=== PATIENT | female | born 1940 | race Caucasian/White ===

== ENCOUNTER 2025-04-15 08:12 | Outpatient (AMB) | payer MEDICARE, SELFPAY ==
--- OUTSIDE RECORDS SUMMARY | 2025-04-13 09:15 | XMS_ITS | Encounter Summary ---
Author Organization [facility] Address [address] [place] [address] Care Team Providers Care Racking Machine Operator Name Role Phone Ramona Rodriguez NP Primary Care Provider [phone] Encounter Details Date Type Department Care Team (Latest Contact Info) Description 04/13/2025 9:15 AM EDT Clinical Support Internal [facility] [address] [place] [address] Lizbeth Dumont MA Immunization due (Primary Dx) Social History Tobacco Use Types Packs/Day Years Used Date Smoking Tobacco: Never Smokeless Tobacco: Never Alcohol Use Standard Drinks/Week Comments Not Currently 0 (1 standard drink = 0.6 oz pur e alcohol) Housing Instability Answer Date Recorde d Are you worried that in the next 2 months you may not have stable housing? No 08/14/2024 Food Access & Nutrition Answer Date Rec orded Do you have access to a vari ety of food including fruits and vegetables? No 08/14/2024 Health Literacy Answer Date Recorded How often do you need to hav e someone help you when you read instructions, pamphlets, or other written material from your doctor or pharmacy? Never 08/14/2024 Caregiver: How often do you need to have someone help you when you read instructions, pamphlets, or other written material from your doctor or pharmacy? Not on file 08/14/2024 Financial Risk Answer Date Recorded How hard is it for you to pa y for the very basics like food, housing, medical care, and air conditioning / heating? Not very hard 08/14/2024 Transportation Answer Date Recorded Has the lack of transportati on kept you from meetings, work, or from getting things needed for daily living? No Has the lack of transportati on kept you from medical appointments or from getting medications? No 08/14/2024 Social Isolation Answer Date Recorded How often do you feel lonely or isolated from th ose around you? Never 08/14/2024 Food Risk Answer Date Recorded Within the past 12 months we worried whether our food would run out before we got money to buy more. Never true 08/14/2024 Within the past 12 months th e food we bought just didn't last and we didn't have money to get more. Never true 08/14/2024 Dependent Care Answer Date Recorded Do you need help finding or paying for care for your loved ones. For example, child specialist or elderly care for an older adult? No 08/14/2024 Education Answer Date Recorded Do you think completing more education or training, like finishing a GED, going to college, or learning a trade, would be helpful for you? No 08/14/2024 Employment and Income Answer Date Recor ded During the last four weeks, have you been actively looking for work? No 08/14/2024 Living Situation Answer Date Recorded What is your living situation? Unrecognized valu e 08/14/2024 Comments No Sex and Gender Information Value Date Recorded Sex Assigned at Not on file Legal Sex Female 5:47 PM EST Gender Identity Not on file Sexual Orientation Not on file documented as of this encounter Plan of Treatment Upcoming Encounters Date Type Department Care Team (Late st Contact Info) Description 06/17/2025 10:00 AM EST Office Visit Internal Medicine - [facility] [address] [place] [address] Ramona Rodriguez NP [address] [place] [address] 09/30/2025 8:00 AM EDT Office Visit Endocrinology - [place] [address] [place] [address] Muriel Grijalva PA [address] [place], [place] documented as of this encounter Visit Diagnoses Diagnosis Immunization due- Primary documented in this encounter Orders Immunization/Injection Count Last Ordered Date First Ordered Date INFLUENZA TRIVALENT, 0.5ML ( FLUAD) 65YO AND OLDER 1 04/13/2025 documented in this encounter Additional Health Concerns Infection Onset Date Last Indicated Resolved Time COVID-19 03/17/2025 03/17/2025 Assessment Noted Time PHQ-9 Depression Total Score: 0 08/14/19 25 8:39 AM EST documented as of this encounter Care Teams Racking Machine Operator Relationship Specialty Start Date End Date Ramona Rodriguez NP [address] [place] [address] PCP - General 07/05/22 documented as of this encounter
[2025-04-15 08:19] VITALS: BP 142/90; PULSE 81; TEMP 37.1; O2SAT 96
--- NOTE | 2025-04-15 08:19 | AM.OFFWIN_ITS ---
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 - Symptoms began approximately four days ago, characterized by pain and burning during urination, as well as urinary frequency and urgency. - The urine has occasionally appeared cl oudy, but there is no presence of blood, discharge, or vaginal itching. - There are no associated symptoms of ba ck pain, fever, or chills. - The patient has a known allergy to oxy codone but no known allergies to antibiotics. - The patient denies hematuria, abd pain , n/v/d, or stones. Physical Exam General: Cooperative, healthy appearing, comfortable, no acute distress and well developed Cardiac: Normal S1 and S2. RRR, no M/R/G noted. Respiratory: Normal respiratory effort and able to speak in complete sentences. Clear to auscultation bilaterally. No w/r/r noted. Skin: No rashes or lesions noted. GI: Normal inspection. Normal BS noted. Soft, non-tender, non-distended. No TTP of all 4 quadrants. No guarding or rebound tenderness noted. Back: Negative CVA bilaterally Patient was informed and verbally consented to the use of an ambient scribe for clinic note documentation during this visit. Review of Systems Const All systems reviewed & are unremarkable except as noted in HPI and below Physical Exam Vital Signs: Last Vital Signs Temp 98.8 F 04/15/25 08:19 Pulse 81 04/15/25 08:19 BP 142/90 H 04/15/25 08:19 Pulse Ox 96 04/15/25 08:19 Oxygen Delivery Method Room Air 04/15/25 08:19 Results AMB Urinalysis, Automated UA Leukoctes 500 Tatiana/uL Last Edit by Nya Vasquez CMA on 04/15/25 08:28 UA Nitrite Negative Last Edit by Nya Vasquez CMA on 04/15/25 08:28 UA Urobilinogen 0.2 mg/dL Last Edit by Nya Vasquez, JOSÉ MIGUEL on 04/15/25 08:28 UA Protein 0 mg/dL Last Edit by Nya Vasquez, JOSÉ MIGUEL on 04/15/25 08:28 UA pH 6.5 Last Edit by Nya Vasquez, WEIGHTER on 04/15/25 08:28 UA Blood 200 Jagdeep/uL Last Edit by Nya Vasquez, WEIGHTER on 04/15/25 08:28 UA Specific [place] 1.005 Last Edit by Nya Vasquez, WEIGHTER on 04/15/25 08:28 UA Ketone Negative Last Edit by Nya Vasquez, JOSÉ MIGUEL on 04/15/25 08:28 UA Bilirubin 0 mg/dL Last Edit by Nya Vasquez, WEIGHTER on 04/15/25 08:28 UA Glucose 0 mg/dL Last Edit by Nya Vasquez, JOSÉ MIGUEL on 04/15/25 08:28 Results Reviewed Results Reviewed: Laboratory Last Values Urine pH (Auto) 6.5 04/15/25 08:21 Specific [place] (Auto) 1.005 04/15/25 08:21 Urine Protein (Auto) 0 mg/dL 04/15/25 08:21 Glucose (UA)(Auto) 0 mg/dL 04/15/25 08:21 Urine Ketones (Auto) Negative 04/15/25 08:21 Urine Blood (Auto) 200 Jagdeep/uL 04/15/25 08:21 Urine Nitrite (Auto) Negative 04/15/25 08:21 Urine Bilirubin (Auto) 0 mg/dL 04/15/25 08:21 Urine Urobilinogen (Auto) 0.2 mg/dL 04/15/25 08:21 Leukocyte Esterase (Auto) 500 Tatiana/uL 04/15/25 08:21 Assessment & Plan Assessment & Plan (1) UTI (urinary tract infection): Code(s): N39.0 - Urinary tract infection, site not specified Qualifiers: Urinary tract infection type: acute cystitis Hematuria presence: with hematuria Qualified Code(s): N30.01 - Acute cystitis with hematuria Plan Most likely UTI UA 3+ leuk 3+blood Plan - Initiate antibiotic therapy for urinary tract infection for a duration of five days. - Consider prescribing analgesics to manage urinary pain, with a warning about potential urine discoloration. - Send urine culture to the lab to confirm the infection and adjust antibiotics if necessary based on culture results. - follow up with PCP Orders: Orders AMB Urinalysis Automated Today Z13.9 - Encounter for screening, unspecified Urine Culture Today N39.0 - Urinary tract infection, site not specified Medications: New phenazopyridine 100 mg PO tid PRN 6 tabs 0RF Pain cefuroxime axetil 500 mg PO Q12H 10 tabs 0RF Coding Level of Care Code Est Pt Level 3 (64221) Diagnoses Acute cystitis with hematuria N30.01 Urinary tract infection type: acute cystitis Hematuria presence: with hematuria
--- OUTSIDE RECORDS SUMMARY | 2025-04-15 08:30 | XMS_ITS | Encounter Summary ---
Author Organization [facility] Address [address] [place] [address] Care Team Providers Care Director Of Adult Epilepsy Name Role Phone Ramona Rodriguez NP Primary Care Provider [phone] Reason for Visit * Reason Comments Med Change Request Encounter Details Date Type Department Care Team ([facility] st Contact Info) Description 03/14/2025 Telephone Internal Medicine - [facility] [address] [place], [place] [phone] Saritha Kaur NP [address] [place], [place] Social History Tobacco Use Types Packs/Day Years [...] for your loved ones. 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 [...] on file documented as of this encounter Progress Notes * Tawnya Kim MA - 03/17/2025 1:06 PM EDT Not on current med list or in history. * Carina Quinn MA - 03/17/2025 12:31 PM EDT Images from the original note were not included. documented in this encounter Plan of Treatment Upcoming Encounters Date Type Department Care Team (Late st Contact Info) Description 06/17/2025 10:00 AM EST [facility] [address] [place] [address] Ramona Rodriguez NP [address] [place] [address] 09/30/2025 8:00 AM EDT Office Visit Endocrinology - [facility] [address] [place] [address] Muriel Grijalva PA [address] [place] [address] documented as of this encounter Visit Diagnoses Not on filedocumented in this encounter Additional Health Concerns Infection Onset Date Last Indicated Resolved Time COVID-19 03/17/2025 03/17/2025 Assessment Noted Time PHQ-9 Depression Total Score: 0 08/14/19 25 8:39 AM EST documented as of this encounter Care Teams Director Of Adult Epilepsy Relationship Specialty Start Date End Date Ramona Rodriguez NP [address] [place] [address] PCP - General 07/05/22 documented as of this encounter
--- OUTSIDE RECORDS SUMMARY | 2025-04-15 08:30 | XMS_ITS | Continuity of Care Document ---
Author Organization [facility] [address] [facility] [address] [place] [address] Phone [phone] Care Team Providers Care Amusement Park Entertainer Name Role Phone Muriel Grijalva Care Team Information Bunch Maker [phone] Social History Type Date Description Comments Sex Female Sex Unknown Medical Devices Description No Information Available Encounters Description No Information Available Assessments Description No Information Available Plan of Treatment Future Appointment(s):* 04/17/2025 9:15 am - Maureen Dale NP at Main Office Functional Status Description No Information Available Mental Status Description No Information Available Referrals Description No Information Available
--- OUTSIDE RECORDS SUMMARY | 2025-04-15 08:30 | XMS_ITS | Clinical Summary ---
Author Organization [address] [place] [address] [place] [phone] Phone Care Team Providers Care Crime Analyst Name Role Phone Ramona Rodriguez NP Primary Care Provider [phone] Allergies Active Allergy Reactions Criticality Noted Date Comments Diclofenac Sodium 11/19/2024 Extremity edema after application which resolves with its discontinuation. Oxycodone 09/04/2022 Pollen Extracts 06/27/2024 Medications hydrocortison e 2.5 % cream Apply to affected area twice daiy as needed. Not to exceed 14 days of consecutive use. External use only. 10/31/19 23 Active omeprazole (PriLOSEC) [address] capsule Take 1 capsule (20 mg total) by mouth 1 (one) time each day. 09/16/19 23 Active EPINEPHrine (EPIPEN) 0.3 mg/0.3 mL injection Inject 0.3 mL (0.3 mg total) under the skin if needed. Active tiZANidine (ZANAFLEX) 2 mg tablet Take 1 tablet (2 mg total) by mouth every 6 (six) hours if needed for muscle spasms for up to 7 days. 28 each 12/11/19 25 Active NIFEdipine (ADALAT CC) 30 mg 24 hr tablet Take 1 tablet (30 mg total) by mouth 1 (one) time each day. Do not crush, chew, or split. 30 tablet 5 12/25/19 25 025 Active alendronate (FOSAMAX) 70 mg tablet TAKE 1 TAB BY MOUTH EVERY 7 DAYS ON AN EMPTY STOMACH, REMAIN UPRIGHT FOR AT LEAST 30 MINUTES 12 tablet 1 01/06/20 25 Active furosemide (LASIX) 20 mg tablet Take 1 tablet (20 mg total) by mouth 1 (one) time each day if needed (swelling). 30 each 2 01/20/20 25 Active meloxicam (MOBIC) 15 mg tablet Take 1 tablet (15 mg total) by mouth 1 (one) time each day. 03/03/20 25 Active losartan (Cozaar) 100 mg tablet Take 0.5 tablets (50 mg total) by mouth 1 (one) time each day. 45 each 1 02/03/20 25 025 Discontinued celecoxib (CeleBREX) 200 mg capsule Take 1 capsule (200 mg total) by mouth 1 (one) time each day. 025 Discontinued(S bailee effects) molnupiravir 200 mg capsule Take 4 capsules (800 mg total) by mouth every 12 (twelve) hours for 5 days. 40 capsule 03/14/20 25 025 Discontinued nirmatrelvir- ritonavir (Paxlovid) 300 mg (150 mg x 2)-100 mg tablet therapy pack Take 3 tablets by mouth every 12 (twelve) hours for 5 days. Take number of ordered nirmatrelvir (300 mg = 2 tablets) and ritonavir (100 mg = 1 tablet) tablets at the same time. 30 tablet 03/14/20 25 025 Discontinued Active Problems Problem Noted Date Diagnosed Date Gastroesophageal reflux disease without esophagi tis 10/25/2022 Mixed hyperlipidemia 10/25/2022 Age-related osteoporosis wit hout current pathological fracture 10/25/2022 Primary hypertension 09/04/2022 Encounters Date Type Department Care Team Description 04/13/2025 9:15 AM EDT Clinical Support Internal Medicine - [address] [place] [phone] Lizbeth Dumont MA Immunization due (Primary Dx) 03/17/2025 10:00 AM EDT Office Visit Internal Medicine - [address] [place] [phone] Ramona Rodriguez NP Primary hypertension (Primary Dx); Age-related osteoporosis without current pathological fracture; COVID 03/14/2025 10:00 AM EDT Office Visit Walk-In Clinic - [address] [phone] Saritha Kaur NP COVID (Primary Dx); Upper respiratory tract infection, unspecified type 03/14/2025 Telephone Internal Medicine - [address] [phone] Saritha Kaur NP 03/14/2025 Telephone Walk-In Clinic - [address] [phone] Jong Chong 03/14/2025 Telephone Internal Medicine - [address] [phone] Ramona Rodriguez NP 02/27/2025 Telephone Internal Medicine - [address] [phone] Ramona Rodriguez NP 02/20/2025 Telephone Internal Medicine - [address] [phone] Ramona Rodriguez NP 02/20/2025 Telephone Internal Medicine - [address] [phone] Ramona Rodriguez NP 02/10/2025 Telephone Internal Medicine - [address] [phone] Ramona Rodriguez NP 02/02/2025 10:45 AM EDT [facility] [address] [phone] Ramona Rodriguez NP Primary hypertension (Primary Dx); Other fatigue; Polymyalgia ([facility]/HCC V24); Vitamin D deficiency; Polyarthralgia; Screen for colon cancer; Acute pain of right knee 01/30/2025 9:45 AM EDT Office Visit Endocrinology [address] [phone] Antonio Loyd MD Hyperparathyroidism ([facility] V24) (Primary Dx); Age related osteoporosis, unspecified pathological fracture presence 01/26/2025 [facility] [address] [facility] [place] [address] Ramona Rodriguez NP from Last 3 Months Immunizations Immunization Administration Dates Next Due Influenza trivalent, 0.5mL ( Fluad) 65yo and older 04/13/2025 Influenza trivalent, 0.5mL ( Fluzone High-dose) 65yo and older 03/27/2023,04/10/2022,03/16/2021,2017,04/17/2017,05/10/2016 Influenza trivalent, 0.5mL, preservative free (Fluarix; FluLaval; Fluzone) ages 6mo and older (Afluria) 3 years and older 03/24/2020 Influenza trivalent, with preservative (Fluzone; Afluria) 6mo and older 04/15/2015 Pfizer Covid-19 Bivalent, Or iginal + Ba.1 (Non-US Trademark [employer] Intelligence Bivalent) 05/14/2022 Pneumococcal conjugate 13 va lent (Prevnar 13, PCV13) 2mo and older 05/10/2016 Pneumococcal conjugate 20 va lent (Prevnar 20, PCV 20) 2mo and older 09/04/2022 Surgical History Surgery Date Site/Laterality Comments CHOLECYSTECTOMY PROCEDURE: HISTORICAL CHOLECYSTECTOMY CATARACT EXTRACTION Bilateral PROCEDURE: HISTORICAL CATARACT REMOVAL COLONOSCOPY 07/16/2019 - 08/15/2019 int rhoids (10 yr) COLONOSCOPY 05/16/2012 - 06/14/2012 10 yrs Medical History Medical History Date Comments Essential (primary) hypertension DX:Essential (primary) hypertension Allergic rhinitis DX:Allergic rh initis Lumbago DX:Lumbago Family History Medical History Relation Name Comments Hypertension Brother Other cancer Brother No Known Problems Daughter Hypertension Father Hypertension Mother No Known Problems Son Relation Name Status Comments Brother Daughter Alive Father Mother Son Alive Social History Tobacco Use Types Packs/Day Years Used Date Smoking Tobacco: Never Smokeless Tobacco: Never Tobacco Cessation:Counseling Given: Not Answered Alcohol Use Standard Drinks/Week Comments Not Currently [...] for your loved ones. For example, child support investigator or elderly care for an older adult? [...] on file Sexual Orientation Not on file Obstetrics History Para Term AB IAB SAB Ectopic Multiple Livin g Live Births 2 Last Filed Vital Signs Vital Sign Reading Time Taken Comments Blood Pressure 112/58 03/17/2025 9:43 AM EDT Pulse 85 03/17/2025 9:33 AM EDT Temperature 36.7 C (98 F) 03/14/2025 9:54 AM EDT Respiratory Rate - - Oxygen Saturation 98% 03/14/2025 9:54 AM EDT Inhaled Oxygen Concentration - - Weight 60.3 kg (133 lb) 03/17/2025 9:33 AM EDT Height 154.9 cm (5' 1 ) 03/17/2025 9:33 AM EDT Body Mass Index 25.13 03/17/2025 9:33 AM EDT Plan of Treatment Upcoming Encounters Date Type Department Care Team (Late st Contact Info) Description 06/17/2025 10:00 AM EST Office Visit Internal Medicine - [facility] [address] [place], [place] [phone] Ramona Rodriguez, [place] [address] [place] [address] 09/30/2025 8:00 AM EDT Office Visit Endocrinology - [place] [address] [place] [phone] Muriel Grijalva PA [address] [place] [address] Health Maintenance Due Date Last Done Comments DTaP,Tdap,and Td Vaccines (1 - Tdap) 1961 Zoster Vaccines (1 of 2) 1992 Falls Risk Assessment 07/24/2024 07/24/2023 COVID-19 Vaccine ( season) 2025 04/30/2021, 09/13/2020, 08/23/2020 Medicare Annual Wellness Visit 08/14/2025 08/14/2024 Social Influencers of Health Screening 08/14/2025 08/14/2024 Hypertension/CHF/CAD Annual BMP Blood Test 02/20/2026 02/20/2025, 12/09/2024, 09/25/2024, Additional history exists Cholesterol Screening (Lipid Panel) 07/24/2028 07/24/2023 Osteoporosis Screening (Bone Density Screening) 08/20/2034 08/20/2024 Pneumococcal Vaccine: 50+ Years Completed 09/04/2022, 05/10/2016 RSV Immunization Adult Patients Completed 07/31/2024 Depression Screening Completed 08/14/2024, 07/24/19 24 Influenza Vaccine Completed 04/13/2025, , 03/19/2024, Additional history exists HIB Vaccines Aged Out No longer eligi ble based on patient's age to complete this topic HPV Vaccines Aged Out No longer eligi ble based on patient's age to complete this topic Hepatitis A Vaccines Aged Out No long er eligible based on patient's age to complete this topic Hepatitis B Vaccines Aged Out No long er eligible based on patient's age to complete this topic IPV Vaccines Aged Out No longer eligi ble based on patient's age to complete this topic MMR Vaccines Aged Out No longer eligi ble based on patient's age to complete this topic Meningococcal ACWY Vaccine Aged Out N o longer eligible based on patient's age to complete this topic Meningococcal B Vaccine Aged Out No l onger eligible based on patient's age to complete this topic RSV Immunization Patients Under 20 months Aged Out No longer eligible based on patient's age to complete this topic Varicella Vaccines Aged Out No longer eligible based on patient's age to complete this topic Procedures Procedure Name Priority Date/Time Associated Diagnosis Comments POC INFLUENZA A/B Routine 03/17/2025 2:0 2 PM EDT Upper respiratory tract infection, unspecified type POC RAPID [id number], MOLECULAR Routine 03/17/2025 2:02 PM EDT Upper respiratory tract infection, unspecified type BASIC METABOLIC PANEL Routine 02/20/2025 1:37 PM EDT Cramps of lower extremity LAB COLOGUARD COLON CANCER SCREEN Routine 02/07/2025 10:00 AM EDT Screen for colon cancer CBC WITH AUTO DIFFERENTIAL Routine 02/02/2025 11:23 AM EDT Other fatigue CBC AND DIFFERENTIAL Routine 02/02/2025 11:23 AM EDT Other fatigue VITAMIN D 25 HYDROXY Routine 02/02/2025 11:23 AM EDT Other fatigue Vitamin D deficiency VITAMIN B12 Routine 02/02/2025 11:23 AM EDT Other fatigue THYROID STIMULATING HORMONE WITH REFLEX TO FREE T4 AND FREE T3 Routine 02/02/2025 11:23 AM EDT Other fatigue BORRELIA BURGDORFERI ANTIBODY Routine 02/02/2025 11:23 AM EDT Other fatigue BD BONE DENSITY DXA AXIAL SKELETON Routine 08/20/2024 9:26 AM EST Menopause HM DEPRESSION SCREENING Routine 07/24/2023 FALLS RISK ASSESSMENT Routine 07/24/2023 LIPID PANEL Routine 07/24/2023 from Last 3 Months or Most Recently Relevant to Health Maintenance Results * (ABNORMAL) Poc Rapid [id number], MOLECULAR (03/17/2025 2:02 PM EDT) Pathologist [facility] COVID-19/SARS- COV-2 Rapid POC Positive(A ) Negative Comment:corrected by danyell Swab Nasopharyngeal structure / Unknown 03/17/2025 2:02 PM EDT us Saritha Kaur NP POINT OF CARE TEST ENTER/EDIT ORDERABLES Edited Result - Final * POC Influenza A/B manually resulted (03/17/2025 2:02 PM EDT) Pathologist [facility] Rapid Influenza A AGN POC Negative Negative Rapid Influenza B AGN POC Negative Negative Swab 03/17/2025 2:02 PM EDT Saritha Kaur NP POINT OF CARE TEST ENTER/EDIT ORDERABLES Final Result * (ABNORMAL) Basic metabolic panel (02/20/2025 1:37 PM EDT) Sodium 138 133 - 145 mmol/L LAB CHEMISTRY METHOD 02/20/2025 3:26 PM [facility] Potassium 4.3 3.5 - 5.5 mmol/L LAB CHEMISTRY METHOD 02/20/2025 3:26 PM [facility] Chloride 103 96 - 110 mmol/L LAB CHEMISTRY METHOD 02/20/2025 3:26 PM [facility] CO2 31 21 - 32 mmol/L LAB CHEMISTRY METHOD 02/20/2025 3:26 PM [facility] Anion Gap 4 3 - 11 LAB CHEMISTRY METHOD 02/20/2025 3:26 PM [facility] Glucose 145(H) 70 - 100 mg/dL LAB CHEMISTRY METHOD 02/20/2025 3:26 PM [facility] BUN 24 5 - 25 mg/dL LAB CHEMISTRY METHOD 02/20/2025 3:26 PM [facility] Creatinine 1.03 0.50 - 1.10 mg/dL LAB CHEMISTRY METHOD 02/20/2025 3:26 PM [facility] eGFR 54(L) >=60 mL/min/1. 73m2 LAB CHEMISTRY METHOD 02/20/2025 3:26 PM [facility] Comment:Calculation based on the Chronic Kidney Disease Epidemiology Collaboration (CKD-EPI) equation refit without adjustment for race. BUN/Creatinine Ratio 23.3 LAB CHEMISTRY METHOD 02/20/2025 3:26 PM [facility] Calcium 9.8 8.5 - 10.5 mg/dL LAB CHEMISTRY METHOD 02/20/2025 3:26 PM [facility] Blood Venous blood specimen / Unknown Venipuncture / Unknown 02/20/2025 1:37 PM EDT 02/20/2025 1:37 PM EDT Ramona Rodriguez NP LAB BLOOD ORDERABLES Final Resu lt [facility] [address] [place] [address], * Cologuard?? colon cancer screening (02/07/2025 10:00 AM EDT) COLOGUARD Negative Negative [facility] Comment: The Cologuard Plus (TM) test was performed on this specimen. NEGATIVE TEST RESULT. A negative (normal) Cologuard Plus result means the patient has a [id number] chance of having colorectal cancer (CRC) or advanced precancer (polyps or lesions that could become cancer). Negative is the normal value (reference range) for this assay. Guidelines recommend screening again 3 years after a negative Cologuard Plus result. Continued screening increases the chance of finding CRC early or preventing it entirely. A clinical validation study showed the Cologuard Plus test is effective at ruling out CRC. Out of every 10,000 patients testing negative, approximately 2 will be falsely reassured that they do not have CRC, and out of every 100 patients testing negative, approximately 7 patients will be falsely reassured they do not have advanced precancer. TEST DESCRIPTION: The Cologuard Plus test is a multi-target stool DNA (mt-sDNA) test that analyzes DNA and hemoglobin biomarkers in stool. It uses a proprietary algorithm to qualitatively detect CRC and advanced precancer. It is FDA-approved and indicated for use in adults 45 years or older at average risk for CRC. A positive (abnormal) result should be followed by a colonoscopy. Patients with a negative (normal) result should screen again in 3 years. False positive and false negative results may occur. The USPSTF recommends the Cologuard test as a CRC screening option. Their modeling estimates that screening with the test every 3 years from ages 45-85 could prevent up to 73% of CRC and avoid up to 85% of CRC deaths. A 18,911-patient clinical trial found the Cologuard Plus test effectively detects CRC and precancer. The study found the test was 95% sensitive for CRC, 43% sensitive for advanced precancer, and had a 91% specificity (Cologuard Plus Clinician Brochure. [employer]. [place], [place].). Visit [email or web address]/[email or web address] for more test information, references, warnings, and precautions. Stool 02/07/2025 10:0 0 AM EDT 02/10/2025 12:45 PM EDT [facility] LAB MOLECULAR DIAGNOSTICS ORDER JU Final Result Performing Organization Address [facility] [address]/[facility] Co de Phone Number [employer] [address] [place] [address] [facility] [address] [place] [address] * Thyroid stimulating hormone with reflex to free t4 and free t3 (02/02/2025 11:23 AM EDT) Pathologist [facility] TSH 1.96 0.40 - 4.00 mcIU/mL LAB CHEMISTRY METHOD 02/02/2025 2:58 PM EDT [facility] Blood Venous blood specimen / Unknown Venipuncture / Unknown 02/02/2025 11:23 AM EDT 02/02/2025 11:24 AM EDT [facility] LAB BLOOD ORDERABLES Final Resu lt Performing Organization Address City/[facility] [address]/ZIP Co de Phone Number [facility] [address] [place] [address], * (ABNORMAL) CBC auto differential (02/02/2025 11:23 AM EDT) WBC 6.7 4.8 - 10.8 K/[facility] LAB HEMETOLOGY METHOD 02/02/2025 2:22 PM EDT [facility] RBC 4.90(H) 3.80 - 4.80 M/[facility] LAB HEMETOLOGY METHOD 02/02/2025 2:22 PM [facility] Hemoglobin 14.3 11.5 - 16.0 g/dL LAB HEMETOLOGY METHOD 02/02/2025 2:22 PM [facility] Hematocrit 44.3 35.0 - 47.0 % LAB HEMETOLOGY METHOD 02/02/2025 2:22 PM [facility] MCV 90.6 79.0 - 98.0 FL LAB HEMETOLOGY METHOD 02/02/2025 2:22 PM [facility] MCH 29.2 27.0 - 32.0 pcg LAB HEMETOLOGY METHOD 02/02/2025 2:22 PM [facility] MCHC 32.3 32.0 - 37.0 g/dL LAB HEMETOLOGY METHOD 02/02/2025 2:22 PM [facility] RDW 13.8 11.0 - 15.0 % LAB HEMETOLOGY METHOD 02/02/2025 2:22 PM [facility] Platelets 207 130 - 400 K/mcL LAB HEMETOLOGY METHOD 02/02/2025 2:22 PM [facility] MPV 11.6(H) 7.0 - 11.0 FL LAB HEMETOLOGY METHOD 02/02/2025 2:22 PM [facility] NRBC 0.0 <1.0 % LAB HEMETOLOGY METHOD 02/02/2025 2:22 PM [facility] NRBC Absolute 0.00 <0.10 K/mcL LAB HEMETOLOGY METHOD 02/02/2025 2:22 PM [facility] Neutrophils Relative 58.1 % LAB HEMETOLOGY METHOD 02/02/2025 2:22 PM [facility] Lymphocytes Relative 29.1 % LAB HEMETOLOGY METHOD 02/02/2025 2:22 PM [facility] Monocytes Relative 9.3 % LAB HEMETOLOGY METHOD 02/02/2025 2:22 PM EDT [facility] Eosinophils Relative 3.0 % LAB HEMETOLOGY METHOD 02/02/2025 2:22 PM EDT [facility] Basophils Relative 0.4 % LAB HEMETOLOGY METHOD 02/02/2025 2:22 PM EDT [facility] Immature Granulocytes Relative 0.1 % LAB HEMETOLOGY METHOD 02/02/2025 2:22 PM EDT [facility] Neutrophils Absolute 3.87 1.50 - 7.00 K/mcL LAB HEMETOLOGY METHOD 02/02/2025 2:22 PM EDT [facility] Lymphocytes Absolute 1.94 1.00 - 5.00 K/mcL LAB HEMETOLOGY METHOD 02/02/2025 2:22 PM EDT [facility] Monocytes Absolute 0.62 0.20 - 1.00 K/mcL LAB HEMETOLOGY METHOD 02/02/2025 2:22 PM EDT [facility] Eosinophils Absolute 0.20 0.00 - 0.50 K/mcL LAB HEMETOLOGY METHOD 02/02/2025 2:22 PM EDT [facility] Basophils Absolute 0.03 0.00 - 0.20 K/mcL LAB HEMETOLOGY METHOD 02/02/2025 2:22 PM EDT [facility] Immature Granulocytes Absolute 0.01 0.00 - 0.03 K/mcL LAB HEMETOLOGY METHOD 02/02/2025 2:22 PM EDT [facility] Blood Venous blood specimen / Unknown Venipuncture / Unknown 02/02/2025 11:23 AM EDT 02/02/2025 11:24 AM EDT us Ramona Rodriguez NP LAB BLOOD ORDERABLES Final Resu lt [facility] [address] [place] [address], * Borrelia burgdorferi antibody (02/02/2025 11:23 AM EDT) [facility] Lyme Ab Negative Negative LAB CHEMISTRY METHOD 02/03/2025 9:58 AM EDT [facility] Comment: No laboratory evidence of infection with B. burgdorferi (Lyme disease). Negative results may occur in patients recently infected (<=14 days) with B. burgdorferi. If recent infection is suspected, repeat testing on a new sample collected in 7- 14 days is recommended. Blood Venous blood specimen / Unknown Venipuncture / Unknown 02/02/2025 11:23 AM EDT 02/02/2025 11:24 AM EDT Ramona Rodriguez NP LAB BLOOD ORDERABLES Final Resu lt [facility] [address] [place] [address], * Vitamin D 25 hydroxy (02/02/2025 11:23 AM EDT) [facility] Vit D, 25-Hydroxy 35.5 30.0 - 80.0 ng/mL LAB CHEMISTRY METHOD 02/02/2025 2:58 PM EDT [facility] Blood Venous blood specimen / Unknown Venipuncture / Unknown 02/02/2025 11:23 AM EDT 02/02/2025 11:24 AM EDT Ramona Rodriugez [employer] LAB BLOOD ORDERABLES Final Resu lt [facility] [address] [place] [address], * Vitamin B12 (02/02/2025 11:23 AM EDT) [facility] Vitamin B-12 892 250 - 900 pcg/mL LAB CHEMISTRY METHOD 02/02/2025 6:09 PM EDT [facility] Blood Venous blood specimen / Unknown Venipuncture / Unknown 02/02/2025 11:23 AM EDT 02/02/2025 11:24 AM EDT us Ramona Rodriguez NP LAB BLOOD ORDERABLES Final Resu lt [facility] [address] [place] [address], * BD Bone Density DXA Axial Skeleton (08/20/2024 9:26 AM EST) Anatomical Region Laterality Modality Wrist, Hip, L-spine Bone Densito metry 08/20/2024 11:5 0 AM EST Impressions 08/20/2024 11:52 AM EST Impression: This patient is considered to have osteoporosis by WHO criteria. [facility] Department of Internal Medicine recommends using National Osteoporosis Foundation (NOF) guidelines in treatment decisions related to osteoporosis. NOF guidelines suggest considering treatment for postmenopausal women and men aged 50 or older presenting with the following: History of hip or vertebral fracture. T-score = -2.5 (DXA) at the femoral neck, total hip, or spine, after appropriate evaluation to exclude secondary causes. Low bone mass (T-score between -1.0 and -2.5 at the femoral neck or spine) AND a 10-year probability of a hip fracture = 3% OR a 10-year probability of a major osteoporosis-related fracture = 20% based on the [place]-adapted WHO algorithm Please note that all treatment decisions require clinical judgment and consideration of individual patient factors, including patient preferences, co-morbidities, previous drug use, risk factors not captured in the FRAX model (e.g., frailty, falls, vitamin D deficiency, increased bone turnover, interval significant decline in bone density) and possible under- or over-estimation of fracture risk by FRAX. Optional alternative screening schedule based on horace Hinds., [facility] August 03, 2011 for patients with osteopenia (based on hip BMD T-score) is as follows: * advanced osteopenia (T scores -2.00 to -2.49), BMD testing every year * moderate osteopenia (T scores -1.50 to -1.99), BMD testing every 5 years mild osteopenia or normal BMD (T scores -1.50 and higher), BMD testing every 15 years -------- FINAL REPORT -------- Dictated By: Damari Vásquez Dictated Date: 08/20/2024 11:50 ET Assigned Physician: Damari Vásquez Reviewed and Electronically Signed By: Damari Vásquez Signed Date: 08/20/2024 11:52 ET Workstation ID: [id number] Transcribed By: Self Edit Transcribed Date: 08/20/2024 11:50 ET Narrative 08/20/2024 11:52 AM EST BONE DENSITY (DEXA) Lumbar Spine T-score is -2.2. (SD relative to 20-29 y/o adult) Z-score is 0.6. (SD relative to age matched peers) This is considered osteopenia by WHO criteria. Left Hip T-score is -2.5. Z-score is -0.1. This is considered osteoporosis by WHO criteria. There is curvature of the lumbar spine, convexity to the left. Procedure Note Damari Vásquez MD - 08/20/2024 BONE DENSITY (DEXA) Lumbar Spine T-score is -2.2. (SD relative to 20-29 y/o adult) Z-score is 0.6. (SD relative to age matched peers) This is considered osteopenia by WHO criteria. Left Hip T-score is -2.5. Z-score is -0.1. This is considered osteoporosis by WHO criteria. There is curvature of the lumbar spine, convexity to the left. IMPRESSION: Impression: This patient is considered to have osteoporosis by WHO criteria. [facility] Department of Internal Medicine recommendsusing National Osteoporosis Foundation (NOF) guidelines in treatmentdecisions related to osteoporosis. NOF guidelines suggest consideringtreatment for postmenopausal women and men aged 50 or older presentingwith the following: History of hip or vertebral fracture. T-score = -2.5 (DXA) at the femoral neck, total hip, or spine, afterappropriate evaluation to exclude secondary causes. Low bone mass (T-score between -1.0 and -2.5 at the femoral neck or spine)AND a 10-year probability of a hip fracture = 3% OR a 10-year probabilityof a major osteoporosis-related fracture = 20% based on the [place]-adapted WHOalgorithm Please note that all treatment decisions require clinical judgment andconsideration of individual patient factors, including patientpreferences, co-morbidities, previous drug use, risk factors not capturedin the FRAX model (e.g., frailty, falls, vitamin D deficiency, increasedbone turnover, interval significant decline in bone density) and possibleunder- or over-estimation of fracture risk by FRAX. Optional alternative screening schedule based on shannan Hinds al., [facility] for patients with osteopenia (based on hip BMD T-score)is as follows: * advanced osteopenia (T scores -2.00 to -2.49), BMD testing every year * moderate osteopenia (T scores -1.50 to -1.99), BMD testing every 5years mild osteopenia or normal BMD (T scores -1.50 and higher), BMD testingevery 15 years -------- FINAL REPORT -------- Dictated By: Damari Vásquez Dictated Date: 08/20/2024 11:50 ET Assigned Physician: Damari Vásquez Reviewed and Electronically Signed By: Damari Vásquez Signed Date: 08/20/2024 11:52 ET Workstation ID: [id number] Transcribed By: Self Edit Transcribed Date: 08/20/2024 11:50 ET Ramona Rodriguez NP IMG DXA PROCEDURES Final Result * Falls Risk Assessment (07/24/2023) [facility] Falls Risk Assessment Abstracted Historical Provider HEALTH MAINTENANCE Final Result * Depression Screening (07/24/2023) [facility] Depression Screening Abstracted Historical Provider HEALTH MAINTENANCE Final Result * Lipid panel (07/24/2023) [facility] LDL/HDL Ratio 3 Triglycerides 166 mg/dL Cholesterol 234 mg/dL HDL 69 mg/dL LDL Cholesterol 132 mg/dL Blood Venous blood specimen / Unknown us Historical Provider LAB BLOOD ORDERABLES Carrie l Result from Last 3 Months or Most Recently Relevant to Health Maintenance Additional Health Concerns Infection Onset Date Last Indicated COVID-19 03/17/2025 03/17/2025 Insurance [employer] Care Teams Crime Analyst Relationship Specialty Start Date End Date Ramona Rodriguez NP [address] [place] [address] PCP - General 07/05/22
== END 2025-04-15 08:52 | disposition home or self-care (01) ==
PROVIDERS: PCP Internal Medicine; Visit Provider Physician Assistant Medical
DX: Z13.9 Encounter for screening, unspecified (principal); N30.01 Acute cystitis with hematuria

== ENCOUNTER 2025-04-15 08:12 | Outpatient (REF) | payer MEDICARE, MEDICAID, SELFPAY ==
--- OUTSIDE RECORDS SUMMARY | 2025-04-15 09:12 | XMS_ITS | Patient Health Record ---
Author Organization [facility] Address [address] [place] [address] Care Team Providers Care Web Services Manager Name Role Phone Ramona Rodriguez Primary Care Provider Kiesrten Evans Unavailable [phone] Allergies Allergen (clinical drug ingredient) Drug/Non Drug Allergy documented on EMR Reaction Allergy Type Onset Date Status meperidine Demerol pt unsure if allergic to Drug Allergy Active codeine Codeine vomiting Drug Allergy Active oxycodone Oxycodone vomiting Drug Allergy Active Reason For Referral No Information Medications Medication SIG (Take, Route, Frequency, Duration) Notes Start Date End Date Status Losartan Potassium 100 MG 1 tablet Orall y Once a day Active Atenolol 50 MG Oral; Duration: 90 Not-Taking Calcium Not-Taking Eye Health Not-Takin g amLODIPine Besylate 5 MG 1 tablet Orally Once a day Not-Taking Furosemide 20 MG 1 tablet Orally Once a day Active Alendronate Sodium N ot-Taking Hydrocortisone 2.5 % 1 application Externally Once a day Active NIFEdipine ER 30 MG 1 tablet on an empty stomach Orally Once a day Active Pramoxine HCl Active Vitamin D3 Not-Takin g Doxepin HCl Active Meloxicam 15 MG 1 tablet Orally Once a day; Duration: 30 day(s) 02/16/2015 Not-Taking Immunizations Vaccine Route Administration Date Status Comme nts Influenza Unknown 03/19/2024 Administered Social History Tobacco Use: Social History Observation Description Date Details (start date - stop date) Never Smoker NA - NA Tobacco use other than smoking: Question Answer Notes Are you an other tobacco user? No Tobacco Control (Standard) Question Answer Notes Tobacco use: Nonsmoker Additional Findings: Tobacco non-user Current no nsmoker AUDIT-C (Standard) Question Answer Notes Did you have a drink containing alcohol in the p ast year? 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 Problem Myositis (61697701) Myositis (729.1) Active confirmed Problem Pain in limb (67796981) Pain in Limb (729.5) Active confirmed Problem Plantar fasciitis (931903204) Plantar Fasciitis (728.71) Active confirmed Vital Signs Height 5ft 1in in 01/23/2025 Weight 135 lbs 01/23/2025 BMI 25.51 kg/m2 01/23/2025 Encounters Encounter Location Date Provider Diagnosis [facility] [place] [address] [place] [id number] 01/23/2025 Kiersten Garcia Pain in right toe(s) M79.674 ; Onychomycosis B35.1 and Pain in left toe(s) M79.675 Assessments Encounter Date Diagnosis (ICD Code) Assessment Notes Treatment Notes Treatment Clinical Notes Section Notes 01/23/2025 Pain in right toe(s) (ICD-10 - M79.674) 01/23/2025 Onychomycosis (ICD-10 - B35.1) 01/23/2025 Pain in left toe(s) (ICD-10 - M79.675) Plan Of Treatment Pending Test Test Name Order Date X ray : Ankle, right 2V 02/16/2015 X ray : Foot, left 2V 02/16/2015 X ray : Foot, right 2V 02/16/2015 Next Appt Details Provider Name:Kiersten Whalen maria c, 04/24/2025 09:00:00 AM, [address] [address], [place], [address], Insurance Providers Payer Name Payer Address Payer Phone Subscriber Number Group Number Insured Name Patient Relationship to Insured Coverage Start Date Coverage End Date Medicare National Govt Sv[employer] [address] [place] [phone] [id number] Rubina Hendricks Self - patient is the insured 8 [facility] [address] [place] [phone] [id number] Rubina Hendricks Self - patient is the insured Medical (General) History Medical History History ICD Code Cataracts Gall bladder problems Headaches High blood pressure Measles Mumps Osteopenia Arthritis Back,Hip,and Knee pain covid-19 Headaches/Migraines Heart murmur Chicken pox TMJ Surgical History Surgery Date(Month/Year) cataract surgery 2013 gall bladder 2012
== END 2025-04-15 08:13 | disposition home or self-care (01) ==
LOC: HO.LAB 08:12
PROVIDERS: PCP Internal Medicine
DX: N30.01 Acute cystitis with hematuria (principal)
CPT/HCPCS: 81003; 87086; 87088; 87186; 99212

== ENCOUNTER 2025-04-21 07:08 | Outpatient (REF) | payer MEDICARE, MEDICAID, SELFPAY | END 2025-04-21 07:09 | disposition home or self-care (01) | LOC: HO.LAB 07:08 | PROVIDERS: PCP Internal Medicine; Visit Provider Physician Assistant | DX: N30.00 Acute cystitis without hematuria (principal); Z13.89 Encounter for screening for other disorder | CPT/HCPCS: 81003; 87086; 99202 ==

== ENCOUNTER 2025-04-21 07:08 | Outpatient (AMB) | payer MEDICARE, SELFPAY ==
--- NOTE | 2025-04-21 07:10 | AM.OFFWIN_ITS ---
Intake Vital Signs 04/21/25 07:20 Height 5 ft 2 in Weight 135 lb BMI 24.7 BP 120/80 Blood Pressure Location Rt brachial Position Sitting Pulse 95 Pulse Source Pulse Oximeter Temp 98.2 F Pulse Oximetry (%) 97 Oxygen Delivery Method Room Air Intake Visit Reasons: EP Rash on legs from UTI medication? Intake Note: Pt is here today c/o rash on legs ? UTI medication nitrofurantoin Allergies oxycodone Allergy (Verified 04/21/25 07:24) Vomiting nitrofurantoin Adverse Reaction (Verified 04/21/25 07:24) rash HPI HPI Comments History of Present Illness Details History - The patient is an 84-year-old female p resenting with a urinary tract infection and a possible allergic reaction to medication. - Initially treated with an antibiotic, a culture necessitated a change in medication to Macrobid. - Developed a rash on legs after startin g the new medication, which is non-itchy but sometimes warm and stinging. - Denies any trouble breathing, wheezing , tingling in the back of the throat. - Culture and sensitivity showed only se nsitive to Macrobid, Cefepime and Ertapenem. - Advised to take Benadryl and Pepcid to manage symptoms while completing the antibiotic course which is 3 tablets. To avoid having to go to the ED for IV abx and admission. Patient and her agreed with this plan. Physical Exam General: Cooperative, healthy appearing, comfortable, no acute distress and well developed Orientation: Patient oriented x3 Limitations: No limitations Head: Normal to inspection Ears: Hearing grossly normal bilaterally Face and sinus: Normal facial exam Neck: Normal visual inspection and Yes full ROM Respiratory: Normal respiratory effort and able to speak in complete sentences. Skin: mild maculopapular rash on legs, spotty, not confluent, not fulminant, not warm, no hives/wheels, no fluid filled vesicles Neuro: Patient oriented x3 Review of Systems - Skin: Reports rash on legs, denies itc hiness - General: Denies fever, denies respirat ory symptoms such as wheezing or difficulty breathing All systems reviewed and are unremarkable except as noted in HPI Physical Exam Vital Signs: Last Vital Signs Temp 98.2 F 04/21/25 07:20 Pulse 95 04/21/25 07:20 BP 120/80 04/21/25 07:20 Pulse Ox 97 04/21/25 07:20 Oxygen Delivery Method Room Air 04/21/25 07:20 BMI result Body Mass Index 24.7 Results AMB Urinalysis, Automated UA Leukoctes 0 Tatiana/uL Last Edit by Nya Vasquez CMA on 04/21/25 07:49 UA Nitrite Negative Last Edit by Nya Vasquez, JOSÉ MIGUEL on 04/21/25 07:49 UA Urobilinogen 0.2 mg/dL Last Edit by Nya Vasquez, JOSÉ MIGUEL on 04/21/25 07:49 UA Protein 0 mg/dL Last Edit by Nya Vasquez, JOSÉ MIGUEL on 04/21/25 07:49 UA pH 6.0 Last Edit by Nya Vasquez, JOSÉ MIGUEL on 04/21/25 07:49 UA Blood 0 Jagdeep/uL Last Edit by Nya Vasquez, JOSÉ MIGUEL on 04/21/25 07:49 UA Specific Bradley 1.005 Last Edit by Nya Vasquez, JOSÉ MIGUEL on 04/21/25 07:49 UA Ketone Negative Last Edit by Nya Vasquez, JOSÉ MIGUEL on 04/21/25 07:49 UA Bilirubin 0 mg/dL Last Edit by Nya Vasquez, JOSÉ MIGUEL on 04/21/25 07:49 UA Glucose 0 mg/dL Last Edit by Nya Vasquez, JOSÉ MIGUEL on 04/21/25 07:49 Assessment & Plan Assessment & Plan (1) UTI (urinary tract infection): Code(s): N39.0 - Urinary tract infection, site not specified Qualifiers: Urinary tract infection type: acute cystitis Hematuria presence: without hematuria Qualified Code(s): N30.00 - Acute cystitis without hematuria Plan: Plan - Unclear if rash is related to macrobid use, possible but not an obvious allergic rash. Will add as allergy to be cautious. - Repeated UA, neg leuks, neg nitrites, neg blood, will send culture. - She can stop the abx or continue antibiotic regimen while monitoring for allergic reactions. She opted to stop the abx and I will call if culture shows infection. - Administer Benadryl every six hours and Pepcid every eight hours to manage rash symptoms. Patient was informed and verbally consented to the use of an ambient scribe for clinic note documentation during this visit. Orders: Orders Urine Culture Today N39.0 - Urinary tract infection, site not specified AMB Urinalysis Automated Today Z13.9 - Encounter for screening, unspecified Coding Level of Care Code New Pt Level 3 (61127) Diagnoses Acute cystitis without hematuria N30.00 Urinary tract infection type: acute cystitis Hematuria presence: without hematuria
--- OUTSIDE RECORDS SUMMARY | 2025-04-21 07:10 | XMS_ITS | Continuity of Care Document ---
Author Organization [facility] 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 Machine Operator [phone] Problems Active Problems Provider Date Osteoporosis Maureen Dale NP Onset: 04/17 Essential hypertension Maureen Dale NP Onset : 04/17/2025 Hypothyroidism Maureen Dale NP Onset: 04/17 Social History Type Date Description Comments Sex Female Sex Unknown Allergies and adverse reactions Active Allergies Criticality Reaction Severity Comments Date Oxycodone Unable to assess criticality 04/17/2025 Medications Active Medications SIG Qnty Indications Ordering Provider Date Nifedipine ER30mg Tablets ER 24HR 1 by mouth every day 90tabs Maureen Dale NP 04/17/2025 History Medications No Active Medications Unknown 04/17/2025 - 04/17/2025 Vital Signs Date Vital Result Comment 04/17/2025 9:37am BP Systolic 122 mmHg BP Diastolic 76 mmHg Heart Rate 75 /min Height 62 inches 5'2 Weight 133.25 lb BMI (Body Mass Index) 24.4 kg/m2 Medical Devices Description No Information Available Encounters Description No Information Available Assessments Description No Information Available Plan of Treatment Future Appointment(s):* 05/19/2025 8:30 am - Maureen Dale NP at Main Office 04/17/2025 - Maureen Dale NP* * New Medication:* Nifedipine ER 30 mg * No Active Medications Functional Status Description No Information Available Mental Status Description No Information Available Referrals Description No Information Available
--- OUTSIDE RECORDS SUMMARY | 2025-04-21 07:11 | XMS_ITS | Patient Health Record ---
Author Organization [facility] Address [address] [place] [address] Care Team Providers Care Training And Development Coordinator Name Role Phone Ramona Rodriguez Primary Care Provider Kiersten Evans Unavailable [phone] Allergies Allergen (clinical drug ingredient) Drug/Non Drug [...] Status W/U Status Risk Notes Problem Bursitis (08425050) Bursitis (727.3) Active confirmed Problem Disorder of joint of ankle and/or foot (318553516) Arthritis - Degenerative (719.97) Active confirmed Problem Hammer toe (971990578) Hammer toe (735.4) Active confirmed Problem Congenital pes planus (23129581) Flat Foot, 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 confirmed Problem Myositis (66474759) Myositis (729.1) Active confirmed Problem Pain in limb (66879806) Pain in Limb (729.5) Active confirmed Problem Plantar fasciitis (785634767) Plantar Fasciitis (728.71) Active confirmed Vital Signs Height 5ft 1in in 01/23/2025 Weight 135 lbs 01/23/2025 BMI 25.51 kg/m2 01/23/2025 Encounters Encounter Location Date Provider Diagnosis [facility] [place] [address] [place] [phone] 01/23/2025 Kiersten Garcia Pain in right toe(s) [...] Whalen maria c, 04/24/2025 09:00:00 AM, [address] [address], [place], [phone], Insurance Providers Payer Name Payer Address Payer Phone Subscriber Number Group Number Insured Name Patient Relationship to Insured Coverage Start Date Coverage End Date Medicare National Govt Svcs Inc [address] [place] [phone] [id number] Rubina Hendricks Self - patient is the insured 8 [facility] [address] [place] [phone] [id number] Rubina Hendricks Self - patient is the insured Medical (General) History Medical History History ICD Code Cataracts Gall bladder problems Headaches High blood pressure Measles Mumps Osteopenia Arthritis Back,Hip,and Knee pain covid-19 Headaches/Migraines Heart murmur Chicken pox TMJ Surgical History Surgery Date(Month/Year) cataract surgery 2013 gall bladder 2012
--- OUTSIDE RECORDS SUMMARY | 2025-04-21 07:11 | XMS_ITS | Clinical Summary ---
Author Organization [address] [place] [address] [place] [phone] Phone Care Team Providers Care Terrazzo Tile Setter Name Role Phone Cele Saleh NP Primary Care Provider [phone] Allergies Active Allergy Reactions Criticality Noted Date Comments Diclofenac Sodium 11/19/2024 Extremity edema after application which resolves with its discontinuation. Oxycodone 09/04/2022 Pollen Extracts 06/27/2024 Medications hydrocortisone 2.5 % cream Apply to affected area twice daiy as needed. Not to exceed 14 days of consecutive use. External use only. 3 Active omeprazole (PriLOSEC) [address] capsule Take 1 capsule (20 mg total) by mouth 1 (one) time each day. 3 Active EPINEPHrine (EPIPEN) 0.3 mg/0.3 mL injection Inject 0.3 mL (0.3 mg total) under the skin if needed. Active tiZANidine (ZANAFLEX) 2 mg tablet Take 1 tablet (2 mg total) by mouth every 6 (six) hours if needed for muscle spasms for up to 7 days. 28 each 5 Active NIFEdipine (ADALAT CC) 30 mg 24 hr tablet Take 1 tablet (30 mg total) by mouth 1 (one) time each day. Do not crush, chew, or split. 30 tablet 5 5 06/22/20 25 Active alendronate (FOSAMAX) 70 mg tablet TAKE 1 TAB BY MOUTH EVERY 7 DAYS ON AN EMPTY STOMACH, REMAIN UPRIGHT FOR AT LEAST 30 MINUTES 12 tablet 1 5 Active furosemide (LASIX) 20 mg tablet Take 1 tablet (20 mg total) by mouth 1 (one) time each day if needed (swelling). 30 each 2 5 Active meloxicam (MOBIC) 15 mg tablet Take 1 tablet (15 mg total) by mouth 1 (one) time each day. 5 Active Active Problems Problem Noted Date Diagnosed Date Gastroesophageal reflux disease without esophagi tis 10/25/2022 Mixed hyperlipidemia 10/25/2022 Age-related osteoporosis wit hout current pathological fracture 10/25/2022 Primary hypertension 09/04/2022 Encounters Date Type Department Care Team Description 04/13/2025 9:15 AM EDT Clinical Support Internal Medicine - [address] [phone] Lizbeth Dumont MA Immunization due (Primary Dx) 03/17/2025 10:00 AM EDT Office Visit Internal Medicine - [address] [phone] Ramona Rodriguez NP Primary hypertension (Primary Dx); Age-related osteoporosis without current pathological fracture; COVID 03/14/2025 10:00 AM EDT Office Visit Walk-In Clinic - [address] [phone] Saritha Kaur NP COVID (Primary Dx); Upper respiratory tract infection, unspecified type 03/14/2025 Telephone Internal Medicine - [address] [phone] Saritha Kaur NP 03/14/2025 Telephone Walk-In Clinic - [address] [phone] Jong Chong 03/14/2025 Telephone Internal Medicine - [address] [phone] Ramona Rodriguez NP 02/27/2025 Telephone Internal Medicine - [address] [phone] Ramona Rodriguez NP 02/20/2025 Telephone Internal Medicine - [address] [phone] Ramona Rodriguez NP 02/20/2025 Telephone Internal Medicine - [address] [phone] Ramona Rodriguez NP 02/10/2025 Telephone Internal Medicine - [address] [phone] Ramona Rodriguez NP 02/02/2025 10:45 AM EDT Office Visit Internal Medicine - [address] [phone] Ramona Rodriguez NP Primary hypertension (Primary Dx); Other fatigue; Polymyalgia (CMS/HCC V24); Vitamin D deficiency; Polyarthralgia; Screen for colon cancer; Acute pain of right knee 01/30/2025 9:45 AM EDT Office Visit Endocrinology [address] [phone] Antonio Loyd MD Hyperparathyroidism ([facility] V24) (Primary Dx); Age related osteoporosis, unspecified pathological fracture presence 01/26/2025 Telephone Internal Medicine [address] [phone] Ramona Rodriguez NP from Last 3 Months [...] Bivalent, Or iginal + Ba.1 (Non-US Trademark NAVX Bivalent) 05/14/2022 Pneumococcal conjugate 13 va lent [...] care for your loved ones. 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 [...] Office Visit Internal Medicine - [place] [address] [place] [phone] Ramona Rodriguez, RAT BREEDER [address] [facility] [place] 09/30/2025 8:00 AM EDT Office Visit Endocrinology - [place] [address] [place] [phone] Muriel Grijalva PA [address] [place], [place] Health Maintenance Due Date Last Done Comments DTaP,Tdap,and Td Vaccines (1 - Tdap) 1961 Zoster Vaccines (1 of 2) 1992 Falls Risk Assessment 07/24/2024 07/24/2023 COVID-19 Vaccine ( - season) 2025 04/30/2021, 09/13/2020, 08/23/2020 Medicare Annual [...] respiratory tract infection, unspecified type POC RAPID [id number], MOLECULAR Routine 03/17/2025 2:02 PM EDT Upper [...] Health Maintenance Results * (ABNORMAL) Poc Rapid [id number], MOLECULAR (03/17/2025 2:02 PM EDT) [facility] COVID-19/SARS- COV-2 Rapid POC Positive(A ) Negative Comment:corrected by gs Swab Nasopharyngeal structure / Unknown 03/17/2025 2:02 PM EDT us Saritha Kaur NP POINT OF CARE TEST ENTER/EDIT ORDERABLES Edited Result - Final * POC Influenza A/B manually resulted (03/17/2025 2:02 PM EDT) [facility] Rapid Influenza A AGN POC Negative Negative Rapid Influenza B AGN POC Negative Negative Swab 03/17/2025 2:02 PM EDT us Saritha Kaur NP POINT OF CARE TEST ENTER/EDIT ORDERABLES Final Result * (ABNORMAL) Basic metabolic panel (02/20/2025 1:37 PM EDT) [facility] Sodium 138 133 - 145 mmol/L LAB CHEMISTRY METHOD 02/20/2025 3:26 PM EDT [facility] Potassium 4.3 3.5 - 5.5 mmol/L LAB CHEMISTRY METHOD 02/20/2025 3:26 PM EDT [facility] Chloride 103 96 - 110 mmol/L LAB CHEMISTRY METHOD 02/20/2025 3:26 PM EDT [facility] CO2 31 21 - 32 mmol/L LAB CHEMISTRY METHOD 02/20/2025 3:26 PM EDT [facility] Anion Gap 4 3 - 11 LAB CHEMISTRY METHOD 02/20/2025 3:26 PM EDT [facility] Glucose 145(H) 70 - 100 mg/dL LAB CHEMISTRY METHOD 02/20/2025 3:26 PM EDT [facility] BUN 24 5 - 25 mg/dL LAB CHEMISTRY METHOD 02/20/2025 3:26 PM EDT [facility] Creatinine 1.03 0.50 - 1.10 mg/dL LAB CHEMISTRY METHOD 02/20/2025 3:26 PM EDT [facility] eGFR 54(L) >=60 mL/min/1. 73m2 LAB CHEMISTRY METHOD 02/20/2025 3:26 PM EDT [facility] Comment:Calculation based on the Chronic Kidney Disease Epidemiology Collaboration (CKD-EPI) equation refit without adjustment for race. BUN/Creatinine Ratio 23.3 LAB CHEMISTRY METHOD 02/20/2025 3:26 PM EDT [facility] Calcium 9.8 8.5 - 10.5 mg/dL LAB CHEMISTRY METHOD 02/20/2025 3:26 PM EDT [facility] Blood Venous blood specimen / Unknown Venipuncture / Unknown 02/20/2025 1:37 PM EDT 02/20/2025 1:37 PM EDT Ramona Rodriguez NP LAB BLOOD ORDERABLES Final Resu lt [facility] [address] [place] [address], * Cologuard?? colon cancer screening (02/07/2025 10:00 AM EDT) COLOGUARD Negative Negative [facility] Comment: The Cologuard Plus (TM) test was performed on this specimen. NEGATIVE TEST RESULT. A negative (normal) Cologuard Plus result means the patient has a [id number]-[id number] chance of having colorectal cancer (CRC) or [...] a 91% specificity (Cologuard Plus Clinician Brochure. [employer]. [place], [place].). Visit [email or web address].[email or web address] for more test information, references, warnings, and precautions. Stool 02/07/2025 10:0 0 AM EDT 02/10/2025 12:45 PM EDT Ramona Rodriguez NP LAB MOLECULAR DIAGNOSTICS ORDER JU Final Result [employer] [address] [place] [place] [address] Speak With Me [address] [place] [address] * Thyroid stimulating hormone with reflex to free t4 and free t3 (02/02/2025 11:23 AM EDT) [facility] TSH 1.96 0.40 - 4.00 mcIU/mL LAB CHEMISTRY METHOD 02/02/2025 2:58 PM EDT [facility] Blood Venous blood specimen / Unknown Venipuncture / Unknown 02/02/2025 11:23 AM EDT 02/02/2025 11:24 AM EDT Ramona Rodriguez RAT BREEDER LAB BLOOD ORDERABLES Final Resu lt [facility] [address] [place] [address], * (ABNORMAL) CBC auto differential (02/02/2025 11:23 AM EDT) [facility] WBC 6.7 4.8 - 10.8 K/mcL LAB HEMETOLOGY METHOD 02/02/2025 2:22 PM EDT [facility] RBC 4.90(H) 3.80 - 4.80 M/mcL LAB HEMETOLOGY METHOD 02/02/2025 2:22 PM EDT [facility] Hemoglobin 14.3 11.5 - 16.0 g/dL LAB HEMETOLOGY METHOD [facility] Hematocrit 44.3 35.0 - 47.0 % LAB HEMETOLOGY METHOD 02/02/2025 2:22 PM EDT [facility] MCV 90.6 79.0 - 98.0 FL LAB HEMETOLOGY METHOD 02/02[facility]2025 [facility] MCH 29.2 27.0 - 32.0 pcg LAB HEMETOLOGY METHOD 02/02/2025 2:[facility] MCHC 32.3 32.0 - 37.0 g/dL LAB HEMETOLOGY METHOD 02/02/2025 2:22 PM EDT [facility] RDW 13.8 11.0 - 15.0 % LAB HEMETOLOGY METHOD 02/02/2025 2:22 PM [facility] Platelets 207 130 - 400 K/mcL LAB HEMETOLOGY METHOD 02/02/2025 2:22 PM [facility] MPV 11.6(H) 7.0 - 11.0 FL LAB HEMETOLOGY METHOD 02/02/2025 2:22 PM [facility] NRBC 0.0 <1.0 % LAB HEMETOLOGY METHOD 02/02/2025 2:22 PM [facility] NRBC Absolute 0.00 <0.10 K/mcL LAB HEMETOLOGY METHOD 02/02/2025 2:22 PM [facility] Neutrophils Relative 58.1 % LAB HEMETOLOGY METHOD 02/02/2025 2:22 PM [facility] Lymphocytes Relative 29.1 % LAB HEMETOLOGY METHOD 02/02/2025 2:22 PM [facility] Monocytes Relative 9.3 % LAB HEMETOLOGY METHOD 02/02/2025 2:22 PM [facility] Eosinophils Relative 3.0 % LAB HEMETOLOGY METHOD 02/02/2025 2:22 PM [facility] Basophils Relative 0.4 % LAB HEMETOLOGY METHOD 02/02/2025 2:22 PM [facility] Immature Granulocytes Relative 0.1 % LAB HEMETOLOGY METHOD 02/02/2025 2:22 PM [facility] Neutrophils Absolute 3.87 1.50 - 7.00 K/mcL LAB HEMETOLOGY METHOD 02/02/2025 2:22 PM [facility] Lymphocytes Absolute 1.94 1.00 - 5.00 K/mcL LAB HEMETOLOGY METHOD 02/02/2025 2:22 PM [facility] Monocytes Absolute 0.62 0.20 - 1.00 K/mcL LAB HEMETOLOGY METHOD 02/02/2025 2:22 PM EDT [facility] Eosinophils Absolute 0.20 0.00 - 0.50 K/[facility] LAB HEMETOLOGY METHOD 02/02/2025 2:22 PM EDT [facility] Basophils Absolute 0.03 0.00 - 0.20 K/[facility] LAB HEMETOLOGY METHOD 02/02/2025 2:22 PM EDT [facility] Immature Granulocytes Absolute 0.01 0.00 - 0.03 K/[facility] LAB HEMETOLOGY METHOD 02/02/2025 2:22 PM EDT [facility] Blood Venous blood specimen / Unknown Venipuncture / Unknown 02/02/2025 11:23 AM EDT 02/02/2025 11:24 AM EDT Ramona Rodriguez LAB BLOOD ORDERABLES Final Resu lt Performing Organization Address City/[facility]/ZIP Co de Phone Number [facility] [address] [place] [address], * Borrelia burgdorferi antibody (02/02/2025 11:23 AM EDT) [facility] Lyme Ab Negative Negative LAB CHEMISTRY METHOD 02/03/2025 9:58 AM EDT [facility] Comment: No laboratory evidence of [...] 02/02/2025 11:24 AM EDT us Ramona Rodriguez RAT BREEDER LAB BLOOD ORDERABLES Final Resu lt [facility] [address] [place] [address], [place] [phone] * Vitamin D 25 hydroxy (02/02/2025 11:23 AM EDT) Pathologist [facility] Vit D, 25-Hydroxy 35.5 30.0 - 80.0 ng/mL LAB CHEMISTRY METHOD 02/02/2025 2:58 PM EDT [facility] Blood Venous blood specimen / Unknown Venipuncture / Unknown 02/02/2025 11:23 AM EDT 02/02/2025 11:24 AM EDT Ramona Rodriguez NP LAB BLOOD ORDERABLES Final Resu lt Performing Organization Address City/[facility]/ZIP Co de Phone Number [facility] [address] [place] [address], * Vitamin B12 (02/02/2025 11:23 AM EDT) [facility] Vitamin B-12 892 250 - 900 pcg/mL LAB CHEMISTRY METHOD 02/02/2025 6:09 PM EDT [facility] Blood Venous blood specimen / Unknown Venipuncture / Unknown 02/02/2025 11:23 AM EDT 02/02/2025 11:24 AM EDT Ramona Rodriguez NP LAB BLOOD ORDERABLES Final Resu lt [facility] [address] [place] [address], [place] [phone] * BD Bone Density DXA Axial Skeleton (08/20/2024 9:26 AM EST) Anatomical Region Laterality Modality Wrist, Hip, L-spine Bone Densito metry 08/20/2024 11:5 0 AM EST Impressions 08/20/2024 11:52 AM EST Impression: This patient is considered to have osteoporosis by WHO criteria. The [facility] Department of Internal Medicine recommends [...] alternative screening schedule based on horace Hinds., [facility] August 03, 2011 for patients with osteopenia [...] Signed Date: 08/20/2024 11:52 ET Workstation ID: [id number] Transcribed By: Self Edit Transcribed Date: 08/20/2024 [...] to have osteoporosis by WHO criteria. The [facility] Department of Internal Medicine recommendsusing [...] alternative screening schedule based on horace Hinds., [facility] for patients with osteopenia (based on [...] Signed Date: 08/20/2024 11:52 ET Workstation ID: [id number] Transcribed By: Self Edit Transcribed Date: 08/20/2024 11:50 ET Ramona Rodriguez NP IMG DXA PROCEDURES Final Result * Falls Risk Assessment (07/24/2023) Pathologist [facility] Falls Risk Assessment Abstracted Historical Provider HEALTH MAINTENANCE Final Result * Depression Screening (07/24/2023) Pathologist [facility] Depression Screening Abstracted Historical Provider HEALTH MAINTENANCE Final Result * Lipid panel (07/24/2023) [facility] LDL/HDL Ratio 3 Triglycerides 166 mg/dL Cholesterol 234 mg/dL HDL 69 mg/dL LDL Cholesterol 132 mg/dL Blood Venous blood specimen / Unknown Result [facility] Historical Provider LAB BLOOD ORDERABLES Carrie l Result from Last 3 Months or Most Recently Relevant to Health Maintenance Insurance [employer] [place] [employer] Care Teams Terrazzo Tile Setter Relationship Specialty Start Date End Date Cele Saleh NP [address] [place] [address] PCP - General Nurse Practitioner 04/16/25
[2025-04-21 07:20] VITALS: BP 120/80; PULSE 95; TEMP 36.8; O2SAT 97; BMI 24.7
== END 2025-04-21 07:51 | disposition home or self-care (01) ==
PROVIDERS: PCP Internal Medicine; Visit Provider Physician Assistant
DX: Z13.9 Encounter for screening, unspecified (principal); N30.00 Acute cystitis without hematuria